=== PATIENT | male | born 1965 | race Caucasian/White ===

== ENCOUNTER 2017-06-03 17:33 | Emergency (ER) | payer BC ==
[~2017-06-03] VITALS: Ht 175.3 cm; Wt 102.1 kg
[~2017-06-03 17:33] MED LIST: BENTYL GENERIC10 MG PO; LISINOPRIL 20MG20 MG NG; LISINOPRIL20 MG PO; LOMOTIL 2.5MG.2.5 MG PO; PHENERGAN 25MG.25 M1 PO; Zofran4 MG PO
--- OUTSIDE RECORDS SUMMARY | 2017-06-03 18:19 | External Medical Summary Rpt | CCD ---
Author Author , CHRISTINE KING Address Unknown Phone [email or web address] Care Team Providers Care Manager Cancer Name Role Phone [facility], [facility] Purpose Continuity of Care Document - 06-24-2011 through 2016 Problems Code Diagnosis DOS Provider Status [id number] Chest pain [facility] Allergies, Adverse Reactions, Alerts Type Allergy to substance Adverse Reaction to Substance Substance Reaction Severity NO KNOWN ALLERGIES Unknown Unknown Medications Na ND Rx Da Fi Fi Am Da Di Ph RX Ph St me C No te ll ll ou ys ag ar # ys at rm s nt no ma ic us Or Da si cy ia de te s n re d SO 00 05 0 No DI 40 -0 UM 97 6- Lo 98 20 ng CH 30 13 er LO 9 RI Ac DE ti ve 0. 9% SO MAT TI ON Sa 63 05 0 No li 80 -0 ne 70 6- Lo 10 20 ng Fl 07 13 er us 5 h Ac 10 ti ML ve Sy ri ng e ON 00 05 0 No DA 64 -0 NS 16 6- Lo ET 08 20 ng RO 02 13 er N 5 HC Ac L ti 4 ve MG /2 ML AL DI 51 05 0 No CY 07 -0 CL 90 6- Lo OM 11 20 ng IN 82 13 er E 0 10 Ac ti MG ve CA PS UL E Vital Signs 11-21-2012 19:39 Name Value Interpretat Reference Comment ion Range BP 86 mm[Hg] Diastolic BP Systolic 131 mm[Hg] Heart 68 /min Rate/Pulse O2% 98 % Respiratory 16 /min Rate 11-21-2012 18:06 Name Value Interpretat Reference Comment ion Range BP 88 mm[Hg] Diastolic BP Systolic 139 mm[Hg] Heart 68 /min Rate/Pulse O2% 98 % Respiratory 24 /min Rate Results Labs Lab Lab Date Result Refere Interp Status Commen Order Detail nces retati t Range on IgE SerPl-aCnc (04-07-2017 11:03) IgE 113 114 OR complet SerPl-a 017 kU/L LESS ed Cnc 11:03 Comment: (NOTE) Comment: Test Performed at: Comment: [facility] Comment: [id number] [facility] Comment: [place] Moyer, [place] [phone] Salvador Castorena MD, PhD COMPREHENSIVE METABOLIC PANEL (11-21-2012 17:35) Glucose 97 74-106 complet 013 mg/dL ed Bld-mCn 17:35 c BUN 17 7-18 complet Bld-mCn 013 mg/dL ed c 17:35 Creat 1.2 0.8-1.3 complet SerPl-m 013 mg/dL ed Cnc 17:35 ESTIMAT 104 50-200 complet ED 013 ML/MIN ed CREATIN 17:35 INE CLEARAN CE GFR 65 Greater complet (ESTIMA 013 ML/MIN than ed RODY) 17:35 60 Sodium 138 136-145 complet SerPl-s 013 mmoL/L ed Cnc 17:35 Potassi 4.2 3.5-5.1 complet um 013 mmoL/L ed SerPl-s 17:35 Cnc Chlorid 102 98-107 complet e 013 mmoL/L ed SerPl-s 17:35 Cnc CO2 28 21.0-32 complet SerPl-s 013 mmoL/L .0 ed Cnc 17:35 Calcium 8.9 8.5-10. complet 013 mg/dL 1 ed SerPl-m 17:35 Cnc Prot 7.4 6.4-8.2 complet SerPl-m 013 gm/dL ed Cnc 17:35 Albumin 11-21- 4.0 3.4-5.0 complet 013 gm/dL ed SerPl-m 17:35 Cnc Globuli 3.4 1.3-3.2 complet n 013 gm/dL ed Ser-mCn 17:35 c Albumin 1.2 UNK 1.1-1.8 complet /Glob 013 ed SerPl-m 17:35 Rto Bilirub 05-06-2 1.0 0.2-1.0 complet 013 mg/dL ed SerPl-m 17:35 Cnc AST 06-2 25 U/L 15-37 complet SerPl-c 013 ed Cnc 17:35 ALT -06-2 49 U/L 30-65 complet SerPl-c 013 ed Cnc 17:35 ALP -06-2 130 U/L 50-136 complet SerPl-c 013 ed Cnc 17:35 LIPASE (11-21-2012 17:35) LIPASE -06-2 85 U/L 73-393 complet 013 ed 17:35 CBC with AUTO DIFF (11-21-2012 17:35) WBC # 05-06-2 9.9 4.8-10. complet Bld 013 K/MM3 8 ed Auto 17:35 RBC # 05-06-2 5.46 4.6-6.2 complet Bld 013 M/mm3 ed Auto 17:35 Hgb -06-2 17.0 14.1-18 complet Bld-mCn 013 g/dL .0 ed c 17:35 Hct Fr 06-2 49.2 % 42.0-52 complet Bld 013 .0 ed 17:35 MCV RBC 05-06-2 90.3 fl 82.2-97 complet 013 .8 ed 17:35 MCH RBC -06-2 31.1 pg 27-31.2 complet Qn 013 ed Auto 17:35 MEAN -06-2 34.5 31.8-35 complet CORPUSC 013 g/dl .4 ed ULAR 17:35 HGB CONC RDW RBC -06-2 13.6 % 11.5-17 complet Auto 013 .5 ed 17:35 Platele 05-06-2 271 142-424 complet t Bld 013 K/mm3 ed Ql 17:35 Manual MEAN -06-2 7.9 fl 7.4-10. complet PLATELE 013 4 ed T 17:35 VOLUME Granulo -06-2 64.3 % 37.0-80 complet cytes 013 .0 ed Fr Bld 17:35 Auto LYMPH % 05-06-2 26.4 % 10-50 complet 013 ed 17:35 Monocyt 05-06-2 6.9 % 1.7-9.3 complet es Fr 013 ed Bld 17:35 Auto Eosinop 05-06-2 1.7 % 0.1-12. complet hil Fr 013 0 ed Bld 17:35 Auto Basophi 05-06-2 0.6 % 0.1-2.0 complet ls Fr 013 ed Bld 17:35 Auto Granulo 05-06-2 6.4 1.3-8.0 complet cytes # 013 K/mm3 ed Bld 17:35 Auto Lymphoc 05-06-2 2.6 0.7-4.5 complet ytes Fr 013 K/mm3 ed Bld 17:35 Auto Monocyt 05-06-2 0.7 0.1-1.0 complet es # 013 K/mm3 ed Bld 17:35 Auto Eosinop 05-06-2 0.2 0.0-0.4 complet hil # 013 K/mm3 ed Bld 17:35 Auto Basophi 05-06-2 0.1 0-0.2 complet ls # 013 K/MM3 ed Bld 17:35 Auto TESTOSTERONE, ADULT MALE (07-01-2011 17:30) TESTOST 424 300-890 Normal complet ERONE, 011 ng/dL ed ADULT 17:30 MALE LIPID PROFILE (07-01-2011 17:30) Is the 2 Y complet Patient 011 ed 17:30 Fasting CHOLEST 4.0 Normal complet JENIFER/HD 011 ed L RATIO 17:30 NON-HDL 155 Normal complet 011 mg/dL ed CHOLEST 17:30 JENIFER VLDL 28 Normal complet CHOLEST 011 mg/dL ed JENIFER 17:30 LDL 127 <100 Above complet CHOLEST 011 mg/dL high ed JENIFER 17:30 normal HDL 07-01- 51 >39 Normal complet CHOLEST 011 mg/dL ed JENIFER 17:30 TRIGLYC 140 <150 Normal complet ERIDES 011 mg/dL ed 17:30 CHOLEST 07-01- 206 115-200 Above complet JENIFER 011 mg/dL high ed 17:30 normal COMPREHENSIVE METABOLIC PANEL (07-01-2011 17:30) ALKALIN 112 U/L 38-126 Normal complet E 011 ed PHOSPHA 17:30 TASE ALANINE 71 U/L 13-69 Above complet 011 high ed AMINOTR 17:30 normal ANSFERA SE/ALT ASPARTA 22 U/L 15-46 Normal complet TE 011 ed AMINOTR 17:30 ANSFERA SE/AST BILIRUB 0.6 0.2-1.3 Normal complet IN,TOTA 011 mg/dL ed L 17:30 ALBUMIN 4.0 3.5-5.0 Normal complet 011 g/dL ed 17:30 TOTAL 6.9 6.3-8.2 Normal complet PROTEIN 011 g/dL ed 17:30 CALCIUM 8.9 8.4-10. Normal complet 011 mg/dL 2 ed 17:30 CARBON 28.0 22.0-30 Normal complet DIOXIDE 011 mEq/L .0 ed 17:30 CHLORID 103 98-109 Normal complet E 011 mEq/L ed 17:30 POTASSI 4.1 3.5-5.1 Normal complet UM 011 mEq/L ed 17:30 BUN/CRE 18.7 10.0-20 Normal complet ATININE 011 .0 ed RATIO 17:30 GLOMERU > 60 >60 Normal complet LAR 011 ed FILTRAT 17:30 ION RATE CREATIN 0.91 0.70-1. Normal complet INE 011 mg/dL 30 ed 17:30 BLOOD 17 7-25 Normal complet UREA 011 mg/dL ed NITROGE 17:30 N GLUCOSE 77 70-100 Normal complet 011 mg/dL ed 17:30 SODIUM 142 137-145 Normal complet 011 mEq/L ed 17:30 CBC WITH AUTO DIFFERENTIAL (07-01-2011 17:30) BASO, 0.04 0.00-0. Normal complet ABSOLUT 011 THOU/uL 20 ed E 17:30 EOS, 0.33 0.00-0. Normal complet ABSOLUT 011 THOU/uL 40 ed E 17:30 MONO, 1.73 0.00-1. Above complet ABSOLUT 011 THOU/uL 00 high ed E 17:30 normal LYMPH, 3.95 1.00-4. Normal complet ABSOLUT 011 THOU/uL 00 ed E 17:30 NEUTROP 12-14-2 12.18 1.50-7. Above complet HIL, 011 THOU/uL 00 high ed ABSOLUT 17:30 normal E BASO % 12-14-2 0.2 % 0.0-2.0 Normal complet 011 ed 17:30 EOS % 12-14-2 1.8 % 0.0-6.0 Normal complet 011 ed 17:30 MONO % 12-14-2 9.4 % 2.0-12. Normal complet 011 0 ed 17:30 LYMPH % 12-14-2 21.5 % 12.0-44 Normal complet 011 .0 ed 17:30 NEUTROP 12-14-2 66.1 % 47.0-76 Normal complet HILS % 011 .0 ed 17:30 IMM 12-14-2 < 3 % <3 Normal complet GRANULO 011 ed CYTE % 17:30 MEAN 12-14-2 10.3 fL 8.6-11. Normal complet PLATELE 011 7 ed T 17:30 VOLUME PLATELE 12-14-2 354 150-375 Normal complet T COUNT 011 THOU/uL ed 17:30 RED 12-14-2 13.0 % 11.5-14 Normal complet CELL 011 .5 ed DISTRIB 17:30 UTION WIDTH MEAN 12-14-2 33.8 31.0-36 Normal complet CORPUSC 011 g/dL .0 ed ULAR 17:30 HGB CONC MEAN 12-14-2 30.8 pg 26.0-33 Normal complet CORPUSC 011 .0 ed ULAR 17:30 HEMOGLO BIN MEAN 12-14-2 91.1 fL 80.0-94 Normal complet CORPUSC 011 .0 ed ULAR 17:30 VOLUME HEMATOC 12-14-2 48.2 % 40.0-54 Normal complet RIT 011 .0 ed 17:30 HEMOGLO 12-14-2 16.3 14.0-18 Normal complet BIN 011 g/dL .0 ed 17:30 RED 12-14-2 5.29 4.60-6. Normal complet BLOOD 011 MILL/uL 20 ed COUNT 17:30 WHITE 12-14-2 18.41 4.00-11 Above complet BLOOD 011 THOU/uL .00 high ed COUNT 17:30 normal Encounters Encounter Start End Date Code Location Performer Type Date Emergency KWABENA TORRES (ER) 3 17:36 3 19:43 [facility]
--- OUTSIDE RECORDS SUMMARY | 2017-06-03 18:19 | External Medical Summary Rpt | CCD ---
Author Author , CHRISTINE KING Address Unknown Phone [email or web address] Care Team Providers Care Tool Programmer Name Role Phone [facility], [facility] Purpose Continuity of Care Document - 06-24-2011 through 2016 Problems Code Diagnosis DOS Provider Status [id number] Chest pain [facility] Allergies, Adverse Reactions, Alerts Type Allergy [...] Comment: (NOTE) Comment: Test Performed at: Comment: [facility] Comment: [id number] [facility] Comment: [place] Moyer, [place] [id number] Salvador Castorena MD, PhD COMPREHENSIVE METABOLIC PANEL [...] KWABENA TORRES (ER) 3 17:36 3 19:43 [facility]
--- OUTSIDE RECORDS SUMMARY | 2017-06-03 18:20 | External Medical Summary Rpt | CCD ---
Author Author , CHRISTINE KING Address Unknown Phone [email or web address] Immunization Name Date Rout CVX Reac Dose Comm Prov Is Faci e tion ent ider Refu lity Give sed n Infl 10-0 150 0.5 Hist UKBG No UKBG uenz 5-20 mL oric CC CC a 17 al Quad Info Inj rmat ion - Sour ce Unsp ecif ied Infl 09-2 150 0.5 Hist LEXC No LEXC uenz 9-20 mL oric VIJAY VIJAY a 16 al Quad Info Inj rmat ion - Sour ce Unsp ecif ied PPV2 10-1 33 0.5 Hist LEXC No LEXC 3 6-20 mL oric VIJAY VIJAY 15 al Info rmat ion - Sour ce Unsp ecif ied Infl 10-0 Intr 150 0.5 Hist LEXC No LEXC uenz 1-20 amus mL oric VIJAY VIJAY a 15 cula al Quad r Info Inj rmat ion - Sour ce Unsp ecif ied
--- OUTSIDE RECORDS SUMMARY | 2017-06-03 18:20 | External Medical Summary Rpt ---
Author Author CHRISTINE Parson, [employer] Organization [employer] Address Unknown Phone Unavailable Results TESTOSTERONE, ADULT MALE Observa Value Referen Units Interpr Notes Date tion ce etation Range TESTOST 424 300 - ng/dL Normal Test Jul 03 ERONE, 890 Informa 2010 ADULT tion: 10:54 MALE Testost AM erone, Adult MaleTo convert to nmol/L, multipl y ng/dL by 0.0347. Perform ed by MAINE goins,[address] [place] [address] [phone] [email or web address], Nadine Rico MD, Lab. Directo r THYROID STIMULATING HORMONE Observa Value Referen Units Interpr Notes Date tion ce etation Range THYROID 3.70 0.46 - uIU/mL Normal No Jul 01 4.68 informa 2010 STIMULA tion in 9:11 PM TING source HORMONE data PSA,SCREEN Observa Value Referen Units Interpr Notes Date tion ce etation Range PSA,SCR 0.79 <=4.00 ng/mL Normal No Jul 01 EEN informa 2010 tion in 9:10 PM source data COMPREHENSIVE METABOLIC PANEL Observa Value Referen Units Interpr Notes Date tion ce etation Range GLUCOSE 77 70 - mg/dL Normal No Jul 01 100 informa 2010 tion in 8:36 PM source data BLOOD 17 7 - 25 mg/dL Normal No Jul 01 UREA informa 2010 NITROGE tion in 8:36 PM N source data CREATIN 0.91 0.70 - mg/dL Normal No Jul 01 INE 1.30 informa 2010 tion in 8:36 PM source data GLOMERU > 60 >60 No Normal GFR is Jul 01 LAR informa only 2010 FILTRAT tion in calcula 8:36 PM ION source robert for RATE data patient s over 18 years of age anddoes not allow for race. Units are mL/min/ 1.73 m2. BUN/CRE 18.7 10.0 - No Normal No Jul 01 ATININE 20.0 informa informa 2010 RATIO tion in tion in 8:36 PM source source data data SODIUM 142 137 - mEq/L Normal No Jul 01 145 inform2010 tion in 8:36 PM source data POTASSI 4.1 3.5 - mEq/L Normal No Jul 01 UM 5.1 inform2010 tion in 8:36 PM source data CHLORID 103 98 - mEq/L Normal No Jul 01 E 109 inform2010 tion in 8:36 PM source data CARBON 28.0 22.0 - mEq/L Normal No Jul 01 DIOXIDE 30.0 inform2010 tion in 8:36 PM source data CALCIUM 8.9 8.4 - mg/dL Normal No Jul 01 10.2 inform2010 tion in 8:36 PM source data TOTAL 6.9 6.3 - g/dL Normal No Jul 01 PROTEIN 8.2 2010 tion in 8:36 PM source data ALBUMIN 4.0 3.5 - g/dL Normal No Jul 01 5.0 inform2010 tion in 8:36 PM source data BILIRUB 0.6 0.2 - mg/dL Normal No Jul 01 IN,TOTA 1.3 inform2010 L tion in 8:36 PM source data ASPARTA 22 15 - 46 U/L Normal No Jul 01 TE informa 2010 AMINOTR tion in 8:36 PM ANSFERA source SE/AST data ALANINE 71 13 - 69 U/L High No Jul 01 inform2010 AMINOTR tion in 8:36 PM ANSFERA source SE/ALT data ALKALIN 112 38 - U/L Normal No Jul 01 E 126 2010 PHOSPHA tion in 8:36 PM TASE source data LIPID PROFILE Observa Value Referen Units Interpr Notes Date tion ce etation Range CHOLEST 206 115 - mg/dL High Borderl Jul 01 JENIFER 200 ine 2010 High 8:36 PM (NCEP) TRIGLYC 140 <150 mg/dL Normal No Jul 01 ERIDES informa 2010 tion in 8:36 PM source data HDL 51 >39 mg/dL Normal No Jul 01 CHOLEST informa 2010 JENIFER tion in 8:36 PM source data LDL 127 <100 mg/dL High Near or Jul 01 CHOLEST above 2010 JENIFER Optimal 8:36 PM (NCEP) VLDL 28 No mg/dL Normal No Jul 01 CHOLEST informa informa 2010 JENIFER tion in tion in 8:36 PM source source data data NON-HDL 155 No mg/dL Normal Non-HDL Jul 01 informa goal 2011 CHOLEST tion in is 8:36 PM JENIFER source equival data ent to the LDL goal plus 30. CHOLEST 4.0 No No Normal No Jul 01 JENIFER/HD informa informa informa 2010 L RATIO tion in tion in tion in 8:36 PM source source source data data data Is the Y No No No No Jul 01 Patient informa informa informa informa 2011 tion in tion in tion in tion in 5:30 PM Fasting source source source source data data data data CBC WITH AUTO DIFFERENTIAL Observa Value Referen Units Interpr Notes Date tion ce etation Range WHITE 18.41 4.00 - THOU/uL High No Jul 01 BLOOD 11.00 2010 COUNT tion in 8:24 PM source data RED 5.29 4.60 - MILL/uL Normal Jul 01 BLOOD 6.20 2010 COUNT tion in 8:24 PM source data HEMOGLO 16.3 14.0 - g/dL Normal Jul 01 BIN 18.0 2010 tion in 8:24 PM source data HEMATOC 48.2 40.0 - % Normal Jul 01 RIT 54.0 2010 tion in 8:24 PM source data MEAN 91.1 80.0 - fL Normal Jul 01 CORPUSC 94.0 2010 ULAR tion in 8:24 PM VOLUME source data MEAN 30.8 26.0 - pg Normal Jul 01 CORPUSC 33.0 2010 ULAR tion in 8:24 PM HEMOGLO source BIN data MEAN 33.8 31.0 - g/dL Normal Jul 01 CORPUSC 36.0 2010 ULAR tion in 8:24 PM HGB source CONC data RED 13.0 11.5 - % Normal Jul 01 CELL 14.5 2010 DISTRIB tion in 8:24 PM UTION source WIDTH data PLATELE 354 150 - THOU/uL Normal Jul 01 T COUNT 375 2010 tion in 8:24 PM source data MEAN 10.3 8.6 - fL Normal Jul 01 PLATELE 11.7 2010 T tion in 8:24 PM VOLUME source data IMM < 3 <3 % Normal Jul 01 GRANULO informa 2010 CYTE % tion in 8:24 PM source data NEUTROP 66.1 47.0 - % Normal Jul 01 HILS % 76.0 inform2010 tion in 8:24 PM source data LYMPH % 21.5 12.0 - % Normal Jul 01 44.0 informa 2010 tion in 8:24 PM source data MONO % 9.4 2.0 - % Normal Jul 01 12.0 inform2010 tion in 8:24 PM source data EOS % 1.8 0.0 - % Normal Jul 01 6.0 informa 2010 tion in 8:24 PM source data BASO % 0.2 0.0 - % Normal Jul 01 2.0 inform2010 tion in 8:24 PM source data NEUTROP 12.18 1.50 - THOU/uL High Jul 01 HIL, 7.00 2010 ABSOLUT tion in 8:24 PM E source data LYMPH, 3.95 1.00 - THOU/uL Normal Jul 01 ABSOLUT 4.00 2010 E tion in 8:24 PM source data MONO, 1.73 0.00 - THOU/uL High No Jul 01 ABSOLUT 1.00 2010 E tion in 8:24 PM source data EOS, 0.33 0.00 - THOU/uL Normal Jul 01 ABSOLUT 0.40 2010 E tion in 8:24 PM source data BASO, 0.04 0.00 - THOU/uL Normal No Jul 01 ABSOLUT 0.20 2010 E tion in 8:24 PM source data CXRPA Observa Value Referen Units Interpr Notes Date tion ce etation Range TEXT [place] No No No No Jun 24 DIAGNOS informa informa informa a 2010 IS McDowel tion in tion in tion in tion in 5:50 PM BATTERY l source source source source HealthE data data data data MRMCDep artment of Diagnos [id number] [place] [phone] Patient : Sex: Age: Unit Number: RAEGAN FLORES ERT M 46 [id number] 764Orde luana Physici an: Status: Date of : Account Number: LUKASZ LIMON MD REG CLI 966 [id number] eneida [place]acon an: Locatio n: Room Num: Date of Exam:NO FAMILY, [facility]: BROCHIT ISREASO N FOR VISIT: BRONCHI TISACCE SSION # [id number] 1207-00 21 __PA and lateral chest.I ndicati on: [employer] parison : 08/13/19 10.Find ings: There is an unchang ed left calcifi ed granulo ma. Thelung s are otherwi se clear. The cardiac and mediast inal contour sare within normal limits. There are no pleural effusio ns oredema . There is no pneumon ia. There is no pneumot horax. Therear e no acute bony abnorma lities. Impress ion:Unr emarkab le exam.__ _Electr onicall y signed by: TORIBIO SALINAS ate: 1Time: 17:51__ ___TORIBIO WILLSON MD
--- OUTSIDE RECORDS SUMMARY | 2017-06-03 18:20 | External Medical Summary Rpt | CCD ---
Author Author [employer] Organization [employer] Address Unknown Phone Unavailable Purpose Continuity of Care Document - through 2016
--- OUTSIDE RECORDS SUMMARY | 2017-06-03 18:20 | External Medical Summary Rpt | CCD ---
Author Author , CHRISTINE KING Address Unknown Phone [email or web address] Immunization Name Date Rout CVX Reac Dose [...]
--- OUTSIDE RECORDS SUMMARY | 2017-06-03 18:20 | External Medical Summary Rpt ---
[...] 0.0347. Perform ed by MAINE goins,[address] [place] [address] [phone] [email or web address], Nadine Rico MD, Lab. Directo r THYROID [...] Notes Date tion ce etation Range TEXT [place] No No No No Jun 24 DIAGNOS informa informa informa a 2010 IS McDowel tion in tion in tion in tion in 5:50 PM BATTERY l source source source source HealthE data data data data MRMCDep artment of Diagnos [id number] [place] [phone] Patient : Sex: Age: Unit Number: RAEGAN FLORES ERT M 46 [id number] 764Orde luana Physici an: Status: Date of : Account Number: LUKASZ LIMON MD REG CLI 966 [id number] eneida [place]acon an: Locatio n: Room Num: Date of Exam:NO FAMILY, [facility] FOR EXAM: BROCHIT ISREASO N FOR VISIT: BRONCHI TISACCE SSION # [id number] 1207-00 21 __PA and lateral chest.I ndicati on: [employer] parison : 08/13/19 10.Find ings: There is [...]
--- NOTE | 2017-06-03 18:27 | Emergency Room Report ---
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 N Clinical Suspician of Infection? N Mental Status: 1 - Regular (Normal Baseline) Sepsis Risk:Low Sepsis Risk Have you (or family members/close friends) recently traveled outside the [place]? N If Yes, where/when: Have you had exposure to infectious disease within the past month? TB? Other? Specify: Source patient, RN notes reviewed, family, RN/MD Exam Limitations no limitations Comment This is a 52-year-old male patient arriving to the emergency room together with his , complaining with LEFT lower chest pain, onset approximately one month ago. His complaint appears to be pleuritic in nature, worse with sneezing, coughing, deep inspiration. Patient denies any local rash, associated with the LEFT lower ribs chest pain. He had an initial episode of severe pain approximately one month ago which has gradually resolved, however this flared up again 4-5 days ago, gradually getting worse. Patient has a nonproductive cough, denies fever, denies chills. He denies any hemoptysis or weight loss as well. No nocturnal sweats. No recent travel, no recent exposure to sick contacts. No previous similar episodes in the past. ALLERGIES Coded Allergies: losartan (Mild, 06/03/17) Home Medications Active Scripts Ondansetron (Zofran Odt) 4 MG PO TIDP #10 ODT Prov: 11/21/12 Dicyclomine Hcl (Bentyl (Generic) 10MG Capsule) 10 MG PO Q6HP #12 CAP Prov: 11/21/12 Reported Medications LISINOPRIL (Lisinopril) 20 MG NG DAILY Promethazine Hydrochloride (Phenergan 25MG Tab) 25 MG PO Q4-6H PRN Diphenoxylate W/ Atropine (Diphenoxylate-Atrop 2.5-0.025) 1 TAB PO History Medical History General Angina: No ND: No Hypertension? Yes Hyperlipidemia? Yes CHF? No COPD? No Asthma? Yes CVA? No Seizures? No Diabetes? No GB Disease: No MRSA? No TB? No Cancer? No Immunization Hx Ped.Immunizations UTD Yes DT/Tetanus 5-10 YRS Flu REFUSES Pneumonia REFUSES Surgical Hx Previous Surgery?Y SINUS SURGERY Family History Family Hx Diabetes No CAD No Hypertension Yes Hyperlipidemia No Cancer No TB No Social History Smoking Hx Smoker: Former Smoker Tobacco: Yes Type Cigarettes Packs/day < 1 Pack Alcohol Alcohol: No Review of Systems All Other Systems Reviewed and Negative Cardiovascular chest pain Physical Exam Vital Signs Vital Signs Date Time Temp Pulse Resp B/P Pulse O2 O2 Flow FiO2 Ox Delivery Rate 06/04 0011 97.7 81 20 128/84 94 06/03 2356 97.7 81 20 128/84 94 06/03 2230 97.7 81 20 123/92 91 06/03 2211 20 06/03 2100 97.9 81 20 138/94 94 06/03 2054 20 06/03 1808 98.9 85 18 124/79 99 06/03 1746 98.4 88 20 132/80 92 General Appearance normal appearance, WD/WN, severe distress Respiratory Status Yes: trachea midline, chest symmetrical, tender on palpation. No: respiratory distress. Lung Sounds bilateral: normal breath sounds, lungs clear. 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 Yes Albert was queried for this patient? No Reason not queried - hospital network issues Risks/benefits of using a controlled substance for treatment were discussed w/pt by me Comment 0210-patient was reevaluated multiple times through the course of his emergency room stay today. At one point he has become violently sick with a coughing spell , throwing him into the bed, in severe pain. This episode prompted additional workup, with contrast imaging of his chest, abdomen and pelvis, given the fact that on the noncontrast CT that T11-T12 area was not visualized. Reviewed results with family members as well as patient, gave previously dictated report to as well as copy of the 3 CT scan films on a CD-ROM, to all be taken to Dr. Nato Arzola for additional outpatient workup. Differential diagnosis: Acute coronary syndrome, pulmonary embolus, pneumothorax , rib fracture, pneumonia, aortic dissection, pleurisy, chest wall strain, shingles, etc. Results/Orders Laboratory Tests 06/03/172099: TSH 2.99, Free T4 Index 7.4, Thyroxine (T4) 7.6, T3 Uptake 39 06/03/172099: Creatine Kinase 207, CK-MB (CK-2) Rel Index 0.6, CK and CKMB Interp 1.3, Troponin I < 0.02 06/03/172099: Sodium 137, Potassium 4.0, Chloride 101, Carbon Dioxide 27, BUN 17, Creatinine 1.3, Estimated Creat Clear 97, Estimated GFR (MDRD) 58, Glucose 97, Calcium 8.8, Total Bilirubin 0.7, AST 16, ALT 27, Alkaline Phosphatase 108, Total Protein 7.3 , Albumin 3.9, Globulin 3.4 H, Albumin/Globulin Ratio 1.1 06/03/172036: B-Natriuretic Peptide 5 06/03/172036: Amylase 30, Lipase 113, D-Dimer 360, WBC 8.9, RBC 5.28, Hgb 15.8, Hct 46.7, MCV 88.4, RDW 13.5, Plt Count 268, MPV 7.4, Gran % 52.2, Gran # 4.7, Lymphocytes % 32.8, Monocytes % 7.1, Eosinophils % 7.0, Basophils % 0.9, Lymphocytes # 2.9, Monocytes # 0.6, Eosinophils # 0.6 H, Basophils # 0.1, PUBS MCHC 33.8, MCH 29.9 Current Medication Orders Sig/Simon Start time Last Medication Dose Route Stop Time Status Admin Ondansetron HCl 0 .STK-MED ONE 06/03 2354 DC .ROUTE Tramadol HCl 0 .STK-MED ONE 06/03 2353 DC PO Ondansetron HCl 8 MG ONCE ONE 06/03 2345 DC 06/04 IV 06/03 2346 0002 Tramadol HCl 1 RACHELE ONCE ONE 06/03 2345 DC 06/04 PO 11/16 2346 0002 Iopamidol 100 ML ONCE ONE 06/03 2330 DCD 06/03 IV 06/03 2331 2328 Sodium Chloride 10 ML ONCE ONE 06/03 2330 DCD 06/03 IV 06/03 2331 2328 Sodium Chloride 50 ML ONCE ONE 06/03 2330 DCD 06/03 IV 06/03 2331 2328 Ketorolac 30 MG ONCE ONE 06/03 2215 DC 06/03 Tromethamine IV 06/03 2216 2211 Ketorolac 0 .STK-MED ONE 06/03 2210 DC Tromethamine .ROUTE Ceftriaxone Sodium 0 .STK-MED ONE 06/03 2047 DC IV Hydromorphone HCl 0 .STK-MED ONE 06/03 2047 DC .ROUTE Ondansetron HCl 0 .STK-MED ONE 06/03 2047 DC .ROUTE Sodium Chloride 100 ML .STK-MED ONE 06/03 2047 DC IV Ceftriaxone Sodium 1 GM ONCE ONE 06/03 2030 DC 06/03 Sodium Chloride 50 ML IV 06/03 Hydromorphone HCl 2 MG ONCE ONE 06/03 2030 DC 06/03 IV 06/03 Ondansetron HCl 4 MG ONCE ONE 06/03 2030 DC 06/03 IV 06/03 Sodium Chloride 10 ML PRN PRN 06/03 2030 DC IV 06/04 2023 Ibuprofen 800 MG ONCE ONE 06/03 2015 CAN PO 06/03 2016 Ibuprofen 0 .STK-MED ONE 06/03 2014 DC PO Oxycodone/ 0 .STK-MED ONE 06/03 2014 DC Acetaminophen PO Tramadol HCl 0 .STK-MED ONE 06/03 2013 DC PO Oxycodone/ 1 TAB ONCE ONE 06/03 2000 CAN Acetaminophen PO 06/03 2001 Tramadol HCl 1 RACHELE ONCE ONE 06/03 2000 CAN PO 06/03 2001 Orders Procedure Date/time Status DIET-NOTHING BY MOUTH 06/04 B Active CTA-CHEST 06/[address] ABD & PELVIS W/ CONTRAST 06/[address] CHEST W/PE PROTOCOL REQ 06/[address] ABD/PELVIS REQ 06/03 2221 Complete URINALYSIS/COMPLETE 06/03 2026 Active THYROID PANEL 2 (WITH TSH) 06/03 2026 Complete LIPASE 06/03 2026 Complete D-DIMER 06/03 2026 Complete CARDIAC ENZYMES 06/03 2026 Complete BRAIN NATRIURETIC PEPTIDE 06/03 2026 Complete AMYLASE 06/03 2026 Complete IV SALINE LOCK 06/03 2023 Active CBC WITH AUTO DIFF 06/03 2023 Complete CHEM 12 PROFILE 06/03 2023 Complete 12 LEAD EKG-BESSON (INITIAL) 06/03 2001 Active ELECTROCARDIOGRAM REQUEST 06/[address] CHEST SCAN REQ 06/03 184 Complete CM/EKG CM/bulldozer/loader/compactor/scraper Rhythm Normal Sinus Rhythm Rate 88 Ectopy No Comments No acute ischemic changes EKG rate, NSR, rhythm, no evid. of ischemic chgs, no ectopy, normal QRS, normal SC, normal EKG, no EKG for comparison, non-spec. ST/Twave chgs, ST elevation, ST depression, LBBB, RBBB, ectopy, abnormal Q waves XRAY/CT/US XRAY/CT/US 1 XRAY chest XR interpretation by reviewed by me (with LEFT ribs), discussed w/radiologist Xray Results no infiltrates, normal heart size, normal lung inflation audrey, no fracture, no pneumothorax XRAY/CT/US 2 CT chest (without IV contrast) CT interpretation by discussed w/radiologist CT Results no rib fracture, no pneumothorax, noticed LEFT kidney exophytic lesion requiring follow-up in 4-6 months with IV contrast per radiologist report , Dr. Nur XRAY/CT/US 3 CT chest (with IV contrast) CT interpretation by discussed w/radiologist CT Results no infiltrates, normal heart size, normal lung inflation audrey, no pulmonary embolus, no aortic dissection, no consolidation, see radiologist's report from virtual radiology XRAY/CT/US 4 CT abdomen, pelvis (with IV contrast) CT interpretation by discussed w/radiologist CT Results multiple bilateral renal cysts, per radiologist's report from virtual radiology BEA Score for N-Stemi/Angina BEA N-STEMI SCORE BEA N-STEMI SCORE Response Value Age of patient Less than 65 yrs 0 Number of risk factors for CAD Presence of less than 3 0 Prior coronary artery stenosis (seen in angiography) Less than 50% 0 ST-Segment deviation on ECG (>1 min) Absent 0 Prior aspirin intake No ASA in the last 7 days 0 Severe anginal chest pain No or 1 episode in 24h 0 Elevated cardiac markers(CK-MB or troponin) Absent 0 Total 0 Risk Stratification 0-2= Low Risk Patients Departure Departure Time of Disposition 2347 Disposition DC Home or Self Care(routine) Clinical Impression Primary Impression: Pleurisy Secondary Impressions: Acute bronchitis Qualifiers: Bronchitis organism: unspecified organism Qualified Code: J20.9 - Acute bronchitis, unspecified Bilateral renal cysts Condition STABLE Referrals ARON MILNER,[place] Andre: [facility] Please schedule a follow-up appointment as soon as possible Patient Instructions DI for Acute Bronchitis, DI for Pleurisy Additional Instructions Please take Motrin 800 mg every 6 hours as needed for pain, follow-up with Dr. Nato Arzola as soon as possible. Attached is a prescription for antibiotics , as well. Discharge Counseling Counseled pt/family regarding diagnosis, test results, medications/RX, home care, follow up needs Comment Please take Motrin 800 mg every 6 hours as needed for pain, follow-up with Dr. Nato Arzola as soon as possible. Attached is a prescription for antibiotics , as well. Prescriptions Current Visit Scripts Amoxicillin/Potassium Clav (Augmentin 875-125 Tablet) 1 EACH PO BID #20 TAB ONDANSETRON HCL (Zofran 4MG Tab) 4 MG PO Q6HP PRN NAUSEA AND VOMITING #30 TAB Ibuprofen (MOTRIN 800MG (generic) Tablet) 800 MG PO QID #28 TAB OXYCODONE HCL/ACETAMINOPHEN (Percocet 10-325 MG Tablet) 1 TAB PO QIDP PRN pain #12 TAB ED Critical Care Critical Care No at 0045
[2017-06-03] MEDS ORDERED: AUGMENTIN 875-1 EACH PO (19:59)
--- NOTE | 2017-06-03 20:22 | RADIOLOGY REPORT PS360 ---
CHEST(2 VIEWS-NOT PORTABLE) HISTORY: PAIN WITH COUGHleft chest pain Patient Age: 52 years: Male Ordering Physician: González Stratton MD TECHNIQUE: PA and lateral chest COMPARISON :AP portable upright chest 07/19/2012 FINDINGS The right fifth rib appears bifid in character anteriorly. The more superior fork of the bifid fifth rib appearing denser & accounting for slight increased density seen on the recent chest CT and chest film.These likely reflect old trauma possibly old fracture here accounting for higher density at the this portion of bifid fifth rib based on CT. As well as plain film Patient does not have pain here currently.There is some minor low density fatty pleural thickening at the posteriorly at this same level which account for slight additional density along the chest wall on plain film as well. Not of concern on subsequent CT. . The small calcified granuloma at the left midlung is again noted and stable since since prior portable study. No new findings are seen at the left chest lungs are clear. The prominent hypertrophic first rib ends bilaterally appear stable. Heart aiyana and mediastinal structures satisfactory. Less than optimal inspiration on the chest film yield some atelectasis and crowding of markings at lung bases as well as central. Slight coarsening of central markings most likely reflects mild chronic bronchitis features from smoking although could not exclude a superimpose active bronchitis with this appearanceThoracic spine intact on lateral IMPRESSION: ... In regards left chest pain the left lung is clear with no active disease. Left chest wall unremarkable Less optimal inspiration today, with slightly crowds markings toward lung bases as well as central markings.. Slight coarsening central markings otherwise most likely chronic in nature, but cannot exclude superimposed central airway inflammation/bronchitis. . The patient has a bifid anterior RIGHT fifth rib with increased density mild sclerosis at this superior fork of this bifid rib.- Likely sclerosis due to old injury/fracture here. Old granulomatous disease. Stable small calcified granuloma mid left chest.
--- NOTE | 2017-06-03 20:30 | RADIOLOGY REPORT PS360 ---
[id number] VIEWS HISTORY: PAIN WITH COUGHchest pain left lower ribs Patient Age: 52 years: Male Ordering Physician: González Stratton MD TECHNIQUE: Both oblique views left RIBS AP chest above and below diaphragm COMPARISON :CT chest & PA and lateral chest today 06/03/2017 as well as portable chest from July 2012 FINDINGS No acute fracture at the left ribs. On close inspection there is a curvilinear calcification just beneath the 10th rib seen on plain film and also evident on subsequent CT. It seems to reside in soft tissues just below the anterior 10th rib and given its curvilinear appearance most likely related to a calcified costochondral feature I would direct or physical exam to this region. This was not fully imaged on CT but could be an area of old trauma. Does not appear to be acute. Remainder the left ribs appear intact with no acute fracture evident or lesion. The left lung is clear with no pneumothorax. Small stable calcified granuloma left midlung. The hypertrophic first rib ends bilaterally are again noted IMPRESSION: - . No discrete/nor definitive rib fracture. No pneumothorax. No pleural effusion. . Note subtle osseous density at overlying the anterior lateral left 10th rib most likely reflection of old trauma and/or costochondral calcification given its curvilinear appearance on CT. I doubt this is of significance but this area is not well imaged on on today's plain films nor CT, given its inferior position at the at or off the margin of all these images. Thus If there should be persistent pain here may warrant follow-up coned-down views of this lower rib area. .
[2017-06-03 20:56] LABS: HEMOGLOBIN 15.8 g/dL (14.1-18.0); LYMPH # 2.9 K/mm3 (0.7-4.5); LYMPH % 32.8 % (10-50)
--- NOTE | 2017-06-03 21:06 | RADIOLOGY REPORT PS360 ---
CT CHEST W/O CONTRAST HISTORY: LEFT LOWER CHEST PAIN Patient Age: 52 years: Male Ordering Physician: González Stratton MD TECHNIQUE: Helical CT scanning performed the chest with sagittal and coronal reconstructions on CT workstation. . No IV contrast COMPARISON :Left rib and CXR PA lateral series from today FINDINGS No pneumothorax. No pleural effusion. No acute pulmonary findings. 9 mm calcified granuloma left midlung located at a left upper lobe just superior to the major fissure with minimal scarring & tiny bleb in this same region... The Associated calcified hilar mediastinal nodes reflecting old granulomatous disease as well.. . There is some minimal calcification irregularity related to the anterior costochondral portion of the lower ribs which accounts for the appearance on accompanying rib series from today. No good evidence of acute fracture or or significant process. I would note that the lowermost margin T12 and 11th ribs are not included on this chest study. Lungs. The developing emphysematous changes.. Minor peribronchial thickening of central airways may reflect a active bronchitis superimposed upon chronic airway changes.. Minimal bleb formation most evident associated scarring at the apices reflect emphysematous changes/COPD.. No focal pneumonia. No pneumothorax. No pleural effusion. Mediastinum. No significant adenopathy. Again calcified granulomatous nodes right paratracheal region, subcarinal region. Largest calcified granulomatous node right paratracheal region measuring up to 17 mm height, 9 mm transverse. No hilar adenopathy or mass. A would note degree prominent hypertrophic first rib ends bilaterally. I favor this reflects hypertrophic rib ends and doubt fracture here or healing fracture lesser is focal pain in this area to raise concern otherwise. HISTORY states left lower rib pain with coughing of which also supports old feature here. Incidentally note a small 9 mm nodular density off the mid left kidney coronal image 57 axial 93. Indeterminate character and can be a small hemorrhagic cyst. Could not exclude early solid nodule. Would benefit from follow-up ultrasound or CT with contrast., within the next next 4-6 months. I suspect some tiny gallstones developing the gallbladder. Axial image 81. Versus sludge. Concur with [facility] report. But addition note the left renal nodule/hyperdense cyst IMPRESSION 1 No acute cardio pulmonary findings. . No focal pneumonia. No pleural effusions. No pneumothorax.. No rib fractures or chest wall findings. 2 Developing emphysematous changes with suspect mild central airway inflammation is reflecting bronchitis. Likely superimposed upon chronic airway changes. Old granulomatous disease. .3...Suspect tiny GALLSTONES at dependent gallbladder 4...Also note near 10 mm indeterminate exophytic nodule at mid left kidney. Warrants follow-up ultrasound or CT with contrast within the next 4-6 months. Hyperdense cyst versus possible early solid nodule left kidney*
[2017-06-03 21:40] LABS: FREE THYROXIN INDEX 7.4 ug/dl (5.93-13.13)
[2017-06-03] MEDS ORDERED: ZOFRAN4 MG PO (23:48)
[2017-06-03] MEDS ORDERED: IBU800 MG PO (23:49)
[2017-06-03] MEDS ORDERED: PERCOCET1 TA1 PO (23:49)
[2017-06-04 00:11] VITALS: BP 128/84
--- NOTE | 2017-06-04 09:39 | RADIOLOGY REPORT PS360 ---
CTA-CHEST HISTORY: Left chest pain. LEFT FLANK PAIN CT chest with the the susceptibility due to the mild sedation evaluate passing obliquely Patient Age: 52 years: Male Ordering Physician: González Stratton MD TECHNIQUE: Bolus measures 1 cc Isovue-370 with hardening at the aorta. CTA chest Study was performed with aortic protocol to rule out dissection. Imaging continues through the chest to the upper abdomen. COMPARISON : FINDINGS Aorta appears normal and well opacified No evidence of dissection . Previously discussed the lungs appear clear with no active disease there are some early emphysematous changes. Small blebs are seen bilaterally most evident towards the apices on right. Associated scarring apices.. Benign calcified granuloma left midlung again observed. Small blebs and scarring here Borderline airway thickening likely reflecting mild bronchitis or possibly chronic in nature. Chest wall. No fractures. The mild sclerosis associated with a bifid right fifth rib again noted likely reflecting old trauma here. No new or acute findings in the left chest. Some variations of the costochondral calcification pattern likely accounts for the densities seen on plain film and inferiorly on left. . Upper abdomen included normal appearance the aorta and renal arteries and top of the kidneys here. Early enhancement liver spleen pancreas images unremarkable. Only note mild diffuse liver changes Pulmonary arteries are not optimally seen but I see no evidence of central pulmonary embolism or prominent findings here. Heart is normal in size the coronary arteries actually surprisingly well visualized with no gross findings IMPRESSION: No acute findings at the chest Normal appearance to the aorta.-This was the focus of this CTA chest study Limited enhancement of pulmonary arteries but no central pulmonary embolism .. Emphysematous changes Mild fatty liver changes . Minor observations in text
--- NOTE | 2017-06-07 10:40 | RADIOLOGY REPORT PS360 ---
CT ABD PELVIS W/ CONTRAST HISTORY: LEFT FLANK PAIN Patient Age: 52 years: Male Ordering Physician: González Stratton MD TECHNIQUE: Bolus administration 100 cc Isovue-370. With helical CT scanning performed the chest and subsequent abdomen. Sagittal & coronal reconstructions on CT workstation. COMPARISON :No prior abdominal study FINDINGS CT a CTA chest of been performed earlier today. Note. Regarding prior CT chest, consider follow-up screening chest CT one year a significant smoking history. Upper normal thickness distal esophagus. Heart normal size. Liver-unremarkable. Spleen unremarkable. Pancreas unremarkable. Gallbladder. Generous size gallbladder but no discrete calcified stones. Adrenals unremarkable. --- Kidneys. No tract calculi nor obstruction Left kidney: 3.1 cm benign cyst, fluid density , off the lateral aspect lower pole left kidney. A smaller 10 mm intermediate density nodule versus possible hemorrhagic cyst or off the midportion left kidney... Ultrasound or follow-up CT in 6 months suggested to further evaluate and confirm benign cyst character. Right kidney. 14 mm benign renal cyst lower pole right kidney. The urinary bladder unremarkable. Moderate size pelvis. No pelvic adenopathy nor mass.No retroperitoneal nor mesenteric adenopathy.. -- Aorta appears normal. No aneurysm. No dissection. GI tract. No significant findings no bowel dilatation or obstruction.. Moderate fluid filled stomach. Small bowel unremarkable..... Large bowel satisfactory with Mild to moderate stool throughout the colon. There is a small ventral hernia just along the superior margin of the umbilicus. Midline abdominal wall defect measuring at just over 12 mm on sagittal image 58 with bulging of fat into this small hernia sac just superior to the umbilicus. No bowel loops of bowel. No significant inflammation.. IMPRESSION: 1. No acute findings in the abdomen or pelvis. 2. Renal cysts bilaterally. Left kidney: 3.1 cm clearly benign cyst lower pole. Also Indeterminate density 1 cm likely hyperdense cyst midportion left kidney. Indeterminate intermediate density. Thus Follow-up ultrasound kidneys/ abdomen; or CT in 6 months, warranted to confirm stability & benign cystic character.
== END 2017-06-04 00:12 | disposition home or self-care (01) ==
LOC: ER 17:33
PROVIDERS: Emergency Medicine
DX: R09.1 Pleurisy (principal); J20.9 Acute bronchitis, unspecified; N28.1 Cyst of kidney, acquired; F17.210 Nicotine dependence, cigarettes, uncomplicated; J45.909 Unspecified asthma, uncomplicated; I10 Essential (primary) hypertension; E78.5 Hyperlipidemia, unspecified
CPT/HCPCS: J2405